=== PATIENT | male | born 1980 ===

== ENCOUNTER 2017-05-22 02:37 | Emergency (ER) | payer OTHER ==
[2017-05-22 03:02] VITALS: BMI 24.5
[2017-05-22 03:29] VITALS: RESP 17
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
[2017-05-22 06:34] VITALS: BP 139/89; PULSE 88; O2SAT 98
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
== END 2017-05-22 06:58 | disposition home or self-care (01) ==
LOC: ED 02:37
DX: S40.011A Contusion of right shoulder, initial encounter (principal); V49.9XXA Car occupant (driver) (passenger) injured in unspecified traffic accident, initial encounter; Y92.480 Sidewalk as the place of occurrence of the external cause